=== PATIENT | male | born 1990 | race African-American/Black ===

== ENCOUNTER 2021-09-28 14:28 | Emergency (ER) | payer OTHER, MEDICAID, SELFPAY ==
[2021-09-28 14:30] VITALS: BP 145/90; PULSE 72; RESP 16; TEMP 37; O2SAT 100; BMI 32.1
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
[2021-09-28 16:37] VITALS: BP 132/70; PULSE 70; RESP 16; TEMP 36.8; O2SAT 100
== END 2021-09-28 16:42 | disposition home or self-care (01) ==
PROVIDERS: Emergency Provider Student in an Organized Health Care Education/Training Program
DX: M25.561 Pain in right knee (principal); V49.3XXA Car occupant (driver) (passenger) injured in unspecified nontraffic accident, initial encounter
CPT/HCPCS: 29505; 73562; 73590; 99283